=== PATIENT | female | born 1980 | race African-American/Black ===

== ENCOUNTER 2017-01-02 13:54 | Emergency (ER) | payer BC ==
[2017-01-02 15:47] VITALS: BP 140/90
--- NOTE | 2017-01-02 16:04 | UC ---
Complaint Female HPI - HPI Summary HPI Summary: onset of dysuria, frequency and urgency today. Attributes urinary symptoms to recent medication changes, mostly buspar, which was added several weeks ago with a lowering of the dose yesterday. History of UTI's and yeast vaginitis in the past. Does not have fever or back pain, no vaginal symptoms. - History Of Current Complaint Chief Complaint: UCGU Stated Complaint: URINARY Time Seen by Provider: 01/02/17 15:37 Hx Obtained From: Patient Hx Last Menstrual Period: 12/19/16 ?: No Onset/Duration: Sudden Onset, Lasting Hours - about 8 Timing: Intermittent Severity Initially: Moderate Severity Currently: Moderate Character: Burning Aggravating Factor(s): Urination Alleviating Factor(s): Nothing Related Hx: Similar Episode/Dx as: - UTI - Risk Factors Ectopic Risk Factor: Negative Ovarian Torsion Risk Factor: Negative - Allergies/Home Medications Allergies/Adverse Reactions: Allergies Allergy/AdvReac Type Severity Reaction Status Date / Time No Known Allergies Allergy Verified 01/02/17 15:24 Home Medications: Home Medications Bupropion XL* [Wellbutrin XL *] 150 mg PO DAILY 01/02/17 [History Confirmed ] Garlic [Garlic Oil] 3 mg PO DAILY 01/02/17 [History Confirmed 01/02/17] Ginkgo Biloba [Ginkgo Biloba Plus] 1 tab PO DAILY 01/02/17 [History Confirmed ] Guanfacine ER (NF) [Intuniv (NF)] 1 mg PO DAILY 01/02/17 [History Confirmed ] LORazepam TAB(*) [Ativan 1 MG TAB (*)] 1 mg PO BEDTIME PRN 01/02/17 [History Confirmed 01/02/17] busPIRone TAB* [Buspar TAB *] 15 mg PO BID 01/02/17 [History Confirmed 01/02/17] PMH/Surg Hx/FS Hx/Imm Hx Cardiovascular History: Hypertension - has had reaction to different meds tried in the past, currently Intuniv is thought to help to control her BP Psychological History: Anxiety, Other - ADD Other Psychological History: history of attentional issues, and is taking bupropion for this. - Surgical History Surgical History: None - Family History Known Family History: Positive: Hypertension - father, Other - father of septicemia - Social History Occupation: Employed Full-time - [employer] Lives: With Family Alcohol Use: None Substance Use Type: None Smoking Status (MU): Never Smoked Tobacco Review of Systems Constitutional: Negative Skin: Negative Eyes: Negative ENT: Negative Respiratory: Negative Cardiovascular: Other - aware of elevated blood pressure with regular follow up with PMD Gastrointestinal: Negative Genitourinary: Dysuria, Frequency, Urgency Motor: Negative Neurovascular: Negative Musculoskeletal: Other: - no back pain. Neurological: Negative Psychological: Negative All Other Systems Reviewed And Are Negative: Yes Physical Exam Triage Information Reviewed: Yes Appearance: Well-Appearing, Pain Distress - minimal Vital Signs: Initial Vital Signs Temp 98.7 F 01/02/17 15:26 Pulse 99 01/02/17 15:26 Resp 16 01/02/17 15:26 BP 140/90 01/02/17 15:26 Pulse Ox 100 01/02/17 15:26 Eyes: Positive: Conjunctiva Clear ENT Exam: Normal Neck: Positive: Nontender, No Lymphadenopathy Respiratory: Positive: Lungs clear, Normal breath sounds Cardiovascular: Positive: RRR, No Murmur Abdomen Description: Positive: Nontender, No Organomegaly, Soft. Negative: CVA Tenderness (R), CVA Tenderness (L) Musculoskeletal Exam: Normal Neurological Exam: Normal Neurological: Positive: Alert Psychological Exam: Normal Skin Exam: Normal Diagnostics - Laboratory Diagnostic Studies Completed/Ordered: UA with leuks and esterase positive. Complaint Female Dx - Course Course Of Treatment: UTI - Differential Dx/Diagnosis Differential Diagnosis/HQI/PQRI: Urinary Tract Infection Provider Diagnoses: UTI Discharge - Discharge Plan Condition: Stable Disposition: HOME Prescriptions: Sulfamethox/Trimethoprim DS* [Bactrim DS 800/160 TAB*] 1 tab PO DAILY #10 tab Patient Education Materials: Urinary Tract Infection in Women (ED) Additional Instructions: Ensure that you increase fluids while treating the urinary infection, and after to help to decrease the likelihood. Follow up with Dr. Ely within 2 weeks to review medications and check blood pressure.
== END 2017-01-02 16:27 | disposition home or self-care (01) ==
LOC: UCCORT 13:54
DX: N39.0 Urinary tract infection, site not specified (principal); I10 Essential (primary) hypertension; F41.9 Anxiety disorder, unspecified; F98.8 Other specified behavioral and emotional disorders with onset usually occurring in childhood and adolescence
CPT/HCPCS: 81003; 87077; 87086; 87186; 99202; G0463

== ENCOUNTER 2019-01-22 20:59 | Emergency (ER) | payer BC ==
--- NOTE | 2019-01-22 21:08 | UC ---
Complaint Female HPI - HPI Summary HPI Summary: ONe dy of burning w/ urination. Control: - History Of Current Complaint Chief Complaint: UCGU Stated Complaint: URINARY Time Seen by Provider: 01/22/19 21:01 Hx Obtained From: Patient Hx Last Menstrual Period: CURRENT ?: No - urine hcg neg today, =vasectomy Character: Burning Aggravating Factor(s): Urination Alleviating Factor(s): Nothing - Allergies/Home Medications Allergies/Adverse Reactions: Allergies Allergy/AdvReac Type Severity Reaction Status Date / Time No Known Allergies Allergy Verified 01/22/19 21:12 Home Medications: Home Medications metFORMIN* [Glucophage 500 MG TAB *] 500 mg PO DAILY 01/22/19 [History Confirmed 01/22/19] PMH/Surg Hx/FS Hx/Imm Hx Previously Healthy: Yes Endocrine History: Diabetes - Surgical History Surgical History: None - Family History Known Family History: Positive: Hypertension - father, Other - father of septicemia - Social History Alcohol Use: None Substance Use Type: None Smoking Status (MU): Never Smoked Tobacco Review of Systems All Other Systems Reviewed And Are Negative: Yes Constitutional: Negative: Fever, Chills Skin: Negative: Rash Gastrointestinal: Negative: Abdominal Pain Genitourinary: Positive: Dysuria. Negative: Hematuria, Frequency, Urgency Neurological: Negative: Weakness Physical Exam Triage Information Reviewed: Yes Appearance: Well-Appearing Vital Signs Reviewed: Yes Respiratory Exam: Normal Cardiovascular Exam: Normal Abdomen Description: Positive: Nontender, Soft. Negative: CVA Tenderness (R), CVA Tenderness (L) Complaint Female Dx - Course Course Of Treatment: Dysuria x1 day w/ no fever or back pain. Exam unremarkable, afebrile. UA significant for UTI and Urine hcg neg. Urine cx sent. We were able to dispense first dose of medication tonight. the rest of meds sent to pharmacy. She declined STI testing. BP elevated and advised she speak w/ pcp. - Differential Dx/Diagnosis Differential Diagnosis/HQI/PQRI: Sexually Transmitted Disease, Urinary Tract Infection Provider Diagnosis: UTI (urinary tract infection) Discharge - Sign-Out/Discharge Documenting (check all that apply): Patient Departure All imaging exams completed and their final reports reviewed: No Studies - Discharge Plan Condition: Good Disposition: HOME Prescriptions: Nitrofurantoin Monohyd/M-Cryst [Macrobid 100 mg Capsule] 100 mg PO BID 9 Days # 19 cap Patient Education Materials: Dysuria (ED) Referrals: Addison Ely MD [Primary Care Provider] - Additional Instructions: If not improving please f/u w/ pcp - Billing Disposition and Condition Condition: GOOD Disposition: Home
[2019-01-22 21:12] VITALS: BP 152/96
[2019-01-22] MEDS ORDERED: Nitrofurantoin Macrocrystals* 50 MG CAP PO ONE (21:27)
== END 2019-01-22 21:46 | disposition home or self-care (01) ==
LOC: UCCORT 20:59
DX: N39.0 Urinary tract infection, site not specified (principal); E11.9 Type 2 diabetes mellitus without complications; Z79.84 Long term (current) use of oral hypoglycemic drugs
CPT/HCPCS: 81003; 84702; 87077; 87086; 87186; 99212; A9270-GY; G0463

== ENCOUNTER 2019-03-02 07:49 | Emergency (ER) | payer BC ==
--- NOTE | 2019-03-02 08:28 | UC ---
Abdominal Pain Female HPI - HPI Summary HPI Summary: PT presents to reporting 2 days dysuria, frequency, urgency. No odor No n/v/ d. No vaginal discharge, itching, odor. pt states was recently treated for UTI - states sx resolved. + sexually active - no concern STD. No vaginal itching discharge No OTC med taken. Meds reviewed - History of Current Complaint Chief Complaint: UCGU Stated Complaint: URINARY COMPLAINT Time Seen by Provider: 03/02/19 08:27 Hx Obtained From: Patient, Medical Records - recent cultures Hx Last Menstrual Period: 02/09/19 Pain Intensity: 0 Allergies/Adverse Reactions: Allergies Allergy/AdvReac Type Severity Reaction Status Date / Time No Known Allergies Allergy Verified 03/02/19 08:02 Home Medications: Home Medications Loratadine [Claritin] 1 tab PO DAILY 03/02/19 [History Confirmed 03/02/19] PMH/Surg Hx/FS Hx/Imm Hx Previously Healthy: Yes - Surgical History Surgical History: None - Family History Known Family History: Positive: Hypertension - father, Other - father of septicemia - Social History Occupation: Employed Full-time Lives: With Family Alcohol Use: None Substance Use Type: None Smoking Status (MU): Never Smoked Tobacco Review of Systems All Other Systems Reviewed And Are Negative: Yes Constitutional: Positive: Negative Skin: Positive: Negative Gastrointestinal: Positive: Negative Genitourinary: Positive: Dysuria, Frequency, Urgency. Negative: Vaginal/Penile Burning, Vaginal/Penile Itching, Vaginal/Penile Discharge, Ulceration/Lesion Physical Exam - Summary Physical Exam Summary: Vital Signs Reviewed: Yes A+Ox3, no distress Eyes: Conjunctiva Clear, ENT: Hearing grossly normal mmoist, Neck: Positive: Supple Respiratory: Positive: No respiratory distress, No accessory muscle use + CTA throughout no w/r Cardiovascular: RRR nl s1, s2 no m/r CBT <2 sec abd soft + BS nt/nd no guarding, no distension, no CVA Musculoskeletal Exam: MONTOYA x 4 without difficulty Strength Intact, ROM Intact Neurological: Positive: Alert, + sensation throughout Psychological: Positive: Normal 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 d/w pt pyrudium return precautions - Differential Dx/Diagnosis Provider Diagnosis: Dysuria Discharge ED - Sign-Out/Discharge Documenting (check all that apply): Patient Departure All imaging exams completed and their final reports reviewed: No Studies - Discharge Plan Condition: Stable Disposition: HOME Prescriptions: Phenazopyridine TAB* [Pyridium 100 mg TAB*] 100 mg PO TID PRN #9 tab PRN Reason: burning with urination Sulfamethox/Trimethoprim DS* [Bactrim DS 800/160 TAB*] 1 tab PO BID #14 tab Patient Education Materials: Dysuria (ED) Referrals: Addison Ely MD [Primary Care Provider] - Additional Instructions: - Stay well hydrated - drink plenty of non-alcoholic, non caffinated beverages - Your urine will be further tested - if you require any changes to your treatment, we will contact you - this usually take 2 days - Take your antibiotics exactly as prescribed until gone - Take pyridium as prescribed for discomfort. This will make your urine blaze orange - this is normal - As discussed,your urine is being further tested for infection as well as for gonorrhea and chlamydia. These results take 2-3 days to return - if you need further treatment, you will receive a call from a care steaming cabinet tender -Okay to alternate ibuprofen (Advil, Motrin) and Tylenol (acetaminophen) every 3 hours for pain or fever. Take with food. Do NOT take for more than 4-5 days. - Contact your primary doctor to arrange a follow-up appointment. If your symptoms persist, you may need evaluation with a urologist. If you develop fevers, vomiting, uncontrolled pain or other concerns it is recommended you go to the emergency department for further evaluation and treatment. - Billing Disposition and Condition Condition: STABLE Disposition: Home
[2019-03-03 12:29] LABS: Chlamydia trachomatis NAA Negative (Negative); Neisseria gonorrhoeae (GC) NAA Negative (Negative)
--- NOTE | 2019-03-04 07:28 | UC ---
- Progress Note Progress Note: Please notify patient Urine culture and G/C Chlamydia testing were negative. Course/Dx - Diagnoses Provider Diagnoses: Dysuria Discharge ED - Sign-Out/Discharge Documenting (check all that apply): Post-Discharge Follow Up All imaging exams completed and their final reports reviewed: No Studies - Discharge Plan Condition: Stable Disposition: HOME Prescriptions: Phenazopyridine TAB* [Pyridium 100 mg TAB*] 100 mg PO TID PRN #9 tab PRN Reason: burning with urination Sulfamethox/Trimethoprim DS* [Bactrim DS 800/160 TAB*] 1 tab PO BID #14 tab Patient Education Materials: Dysuria (ED) Referrals: Addison Ely MD [Primary Care Provider] - Additional Instructions: - Stay well hydrated - drink plenty of non-alcoholic, non caffinated beverages - Your urine will be further tested - if you require any changes to your treatment, we will contact you - this usually take 2 days - Take your antibiotics exactly as prescribed until gone - Take pyridium as prescribed for discomfort. This will make your urine blaze orange - this is normal - As discussed,your urine is being further tested for infection as well as for gonorrhea and chlamydia. These results take 2-3 days to return - if you need further treatment, you will receive a call from a care steam blocker -Okay to alternate ibuprofen (Advil, Motrin) and Tylenol (acetaminophen) every 3 hours for pain or fever. Take with food. Do NOT take for more than 4-5 days. - Contact your primary doctor to arrange a follow-up appointment. If your symptoms persist, you may need evaluation with a urologist. If you develop fevers, vomiting, uncontrolled pain or other concerns it is recommended you go to the emergency department for further evaluation and treatment. - Billing Disposition and Condition Condition: STABLE Disposition: Home
== END 2019-03-02 08:54 | disposition home or self-care (01) ==
LOC: UCCORT 07:49
DX: R30.0 Dysuria (principal); R35.0 Frequency of micturition; R39.15 Urgency of urination; Z87.440 Personal history of urinary (tract) infections
CPT/HCPCS: 81003; 87086; 87491; 87591; 99212; G0463